=== PATIENT | female | born 1950 | race Caucasian/White ===

== ENCOUNTER 2016-11-14 14:28 | Emergency (ER) | payer MEDICARE, BC ==
[2016-11-14 14:35] VITALS: O2SAT 98
[2016-11-14 15:22] LABS: BASOPHILS % (AUTO) 1 % (0-3); EOSINOPHILS % (AUTO) 2 % (0-9); HEMATOCRIT 41 % (35-47); MEAN CORPUSCULAR HGB CONC 34.6 gm/dl (32.0-36.0); MEAN CORPUSCULAR VOLUME 86 fL (81-99); MONOCYTES % (AUTO) 8.5 % (0-12); NEUTROPHILS % (AUTO) 67.8 % (37-80)
[2016-11-14 15:37] VITALS: RESP 20
[2016-11-14 16:11] LABS: APPEARANCE,URINE Slightly Cloudy; BILIRUBIN,URINE NEGATIVE (NEGATIVE); COLOR,URINE Yellow; GLUCOSE, URINE (UA) NEGATIVE (NEGATIVE); KETONES,URINE NEGATIVE (NEGATIVE); LEUKOCYTE ESTERASE ,URINE 2+ (NEGATIVE); NITRATE,URINE NEGATIVE (NEGATIVE); OCCULT BLOOD,URINE 2+ (NEG-TRACE); PH,URINE 6.5; UROBILINOGEN,URINE 0.2 (0.2-1.0 EU)
[2016-11-14 16:24] LABS: AMPHETAMINES NEGATIVE (NEGATIVE); METHADONE NEGATIVE (NEGATIVE); OPIATES(OP13) NEGATIVE (NEGATIVE); OXYCODONE(OXY) NEGATIVE (NEGATIVE); PROPOXYPHENE(PPX) NEGATIVE (NEGATIVE); TRICYCLIC ANTIDEPRESSANTS NEGATIVE (NEGATIVE)
[2016-11-14] MEDS ORDERED: OLANZAPINE 2.5 MG TAB ONE (17:21)
[2016-11-14 17:54] LABS: ALBUMIN 3.8 gm/dl (3.4-5.0); ALT 27 IU/L (14-63); CALCIUM 9.4 mg/dl (8.5-10.1); GLOM FILT RATE 64 mL/min (>60); POTASSIUM 3.8 mMol/L (3.5-5.1); SODIUM 140 mMol/L (136-145); THYROID STIMULATING HORMONE 4.705 uIU/ml (0.358-3.740)
[2016-11-14 19:39] VITALS: BP 175/75; PULSE 103; TEMP 96
[2016-11-14] MEDS ORDERED: ACETAMINOPHEN 325 MG PO ONE (22:28)
[2016-11-14] MEDS ORDERED: SODIUM CHLORIDE 0.9% 1000ML 1,000 ML IV NR ×2 (22:30)
[2016-11-15] MEDS ORDERED: OLANZAPINE 2.5 MG TAB PO SCH (09:00)
== END 2016-11-14 23:15 | DRG 885 ==
LOC: ED 14:28
DX: F31.9 Bipolar disorder, unspecified (principal); F43.9 Reaction to severe stress, unspecified; T43.596A Underdosing of other antipsychotics and neuroleptics, initial encounter
CPT/HCPCS: 36415; 80053; 80305; 80307; 81001; 84443; 85025; 99285

== ENCOUNTER 2017-09-11 09:26 | Emergency (ER) | payer MEDICARE, BC ==
[2017-09-11 10:29] LABS: BASOPHILS % (AUTO) 1 % (0-3); EOSINOPHILS % (AUTO) 2 % (0-9); HEMATOCRIT 37 % (35-47); HEMOGLOBIN 12.8 gm/dl (12.0-15.5); LYMPHOCYTES % (AUTO) 15.8 % (10-50); MEAN CORPUSCULAR HEMOGLOBIN 30.1 pg (27.0-32.0); MEAN CORPUSCULAR HGB CONC 34.3 gm/dl (32.0-36.0); MEAN CORPUSCULAR VOLUME 88 fL (81-99); MONOCYTES % (AUTO) 6.9 % (0-12); NEUTROPHILS % (AUTO) 74.6 % (37-80)
[2017-09-11 11:01] LABS: ALBUMIN 3.4 gm/dl (3.4-5.0); ALKALINE PHOSPHATASE 59 IU/L (46-116); ALT 23 IU/L (14-63); AST 15 IU/L (15-37); BILIRUBIN,TOTAL 0.6 mg/dl (0.2-1.0); BLOOD UREA NITROGEN 18 mg/dl (7-18); CALCIUM 8.2 mg/dl (8.5-10.1); CARBON DIOXIDE 28.9 mEq/L (21-32); CHLORIDE 107 mMol/L (98-107); CREATININE 0.73 mg/dl (0.60-1.00); GLOM FILT RATE 80 mL/min (>60); GLUCOSE 105 mg/dl (74-106); POTASSIUM 4.1 mMol/L (3.5-5.1); SODIUM 144 mMol/L (136-145); THYROID STIMULATING HORMONE 1.984 uIU/ml (0.358-3.740); TOTAL PROTEIN 6.3 gm/dl (6.4-8.2)
[2017-09-11 11:02] LABS: ALCOHOL < 0.003 gm/dl (0.000-0.08)
[2017-09-11 11:51] LABS: APPEARANCE,URINE Clear; BILIRUBIN,URINE NEGATIVE (NEGATIVE); COLOR,URINE Yellow; GLUCOSE, URINE (UA) NEGATIVE (NEGATIVE); KETONES,URINE NEGATIVE (NEGATIVE); LEUKOCYTE ESTERASE ,URINE NEGATIVE (NEGATIVE); NITRATE,URINE NEGATIVE (NEGATIVE); OCCULT BLOOD,URINE 1+ (NEG-TRACE)
[2017-09-11 11:55] LABS: RBC,URINE 0-2 (0-3AV/HPF); WBC,URINE 0-2 (0-5AV/HPF)
[2017-09-11 11:56] LABS: AMPHETAMINES NEGATIVE (NEGATIVE); BACTERIA 1+ (< 1+); BARBITUATES NEGATIVE (NEGATIVE); BENZODIAZEPINES NEGATIVE (NEGATIVE); CANNABINOL(THC) NEGATIVE (NEGATIVE); COCAINE(COC) NEGATIVE (NEGATIVE); CRYSTALS NEGATIVE (0-3 AVE/HPF); METHADONE NEGATIVE (NEGATIVE); METHAMPHETAMINES NEGATIVE (NEGATIVE); OPIATES(OP13) NEGATIVE (NEGATIVE); OXYCODONE(OXY) NEGATIVE (NEGATIVE); PROPOXYPHENE(PPX) NEGATIVE (NEGATIVE); TRICYCLIC ANTIDEPRESSANTS NEGATIVE (NEGATIVE)
[2017-09-11 12:18] VITALS: O2SAT 100
[2017-09-11 14:11] VITALS: BP 166/81; PULSE 84; RESP 24; TEMP 97.5
== END 2017-09-11 14:35 | disposition short-term general hospital (02) | DRG 880 ==
LOC: ED 09:26
DX: R45.851 Suicidal ideations (principal); F31.9 Bipolar disorder, unspecified; F41.9 Anxiety disorder, unspecified
CPT/HCPCS: 36415; 80053; 80305; 80307; 81001; 84443; 85025; 99283; 99284